=== PATIENT | female | born 1965 | race Caucasian/White ===

== ENCOUNTER 2018-04-22 08:45 | Emergency (ER) | payer BC ==
[~2018-04-22] VITALS: Ht 172.7 cm; Wt 95.3 kg
[2018-04-22] MEDS ORDERED: LISI2.5T2 PO (08:59)
[2018-04-22] MEDS ORDERED: TRIA1TAB5 PO (08:59)
--- NOTE | 2018-04-22 09:17 | NUR ---
DR SAMS AT THE BEDSIDE FOR MSE.
[2018-04-22] MEDS ORDERED: METOCLOPRAMIDE HCL 10 MG/2 ML VIAL IV ONE (09:30)
[2018-04-22] MEDS ORDERED: LORAZEPAM 2 MG/1 ML VIAL IV ONE (09:30)
[2018-04-22] MEDS ORDERED: KETOROLAC TROMETHAMINE 30 MG INJ IVP ONE (09:30)
[2018-04-22] MEDS ORDERED: IV NORMAL SALINE 1000 ML BAG IV ONE (09:30)
[2018-04-22] MEDS ORDERED: diphenhydrAMINE 50 MG/1 ML VIAL IV ONE (09:30)
[2018-04-22] MEDS ORDERED: LORAZEPAM 2 MG/1 ML VIAL ONE (09:53)
[2018-04-22] MEDS ORDERED: diphenhydrAMINE 50 MG/1 ML VIAL ONE (09:53)
[2018-04-22] MEDS ORDERED: METOCLOPRAMIDE HCL 10 MG/2 ML VIAL ONE (09:53)
[2018-04-22] MEDS ORDERED: KETOROLAC TROMETHAMINE 30 MG INJ ONE (09:53)
[2018-04-22 10:16] LABS: EOSINOPHILS # (AUTO) 0.1 K/uL (0.0-0.7); EOSINOPHILS % (AUTO) 2.1 % (0.0-7.0); HEMATOCRIT 42.5 % (31.2-41.9); HEMOGLOBIN 15.1 g/dL (10.9-14.3); LYMPHOCYTES # (AUTO) 1.4 K/uL (20.0-40.0); LYMPHOCYTES % (AUTO) 28.5 % (20.5-51.5); MEAN CORPUSCULAR HEMOGLOBIN 34.4 uug (24.7-32.8); MEAN CORPUSCULAR HGB CONC 36 g/dL (32.3-35.6); MEAN CORPUSCULAR VOLUME 97.1 fL (75.5-95.3); MONOCYTES # (AUTO) 0.3 K/uL (2.0-10.0); MONOCYTES % (AUTO) 7.1 % (0.0-11.0); NEUTROPHILS % (AUTO) 61.3 % (38.5-71.5); PLATELET COUNT (AUTO) 265 K/uL (179-408); RED BLOOD CELL COUNT(AUTO) 4.37 MIL/uL (3.63-4.92); WHITE BLOOD COUNT (AUTO) 4.9 K/uL (3.8-11.8)
[2018-04-22 10:25] LABS: CREATININE 0.8 mg/dL (0.6-1.3); POTASSIUM 3.4 mmol/L (3.5-5.1)
--- NOTE | 2018-04-22 11:40 | NUR ---
Patient is resting comfortably in bed with eyes closed, NAD noted.
--- NOTE | 2018-04-22 12:16 | NUR ---
Patient eloped from facility. ER physician notified.
== END 2018-04-22 12:18 | disposition left against medical advice (07) ==
LOC: ER 08:45
DX: R51 Headache (principal); F41.9 Anxiety disorder, unspecified; I10 Essential (primary) hypertension; G89.29 Other chronic pain; M25.572 Pain in left ankle and joints of left foot
CPT/HCPCS: 36415; 73610; 80048; 84702; 85025; 93005; 96374; 96375; 99285; A4663; J1200; J1885; J2060; J2765